=== PATIENT | female | born 2000 | race Caucasian/White ===

== ENCOUNTER 2020-10-16 12:50 | Emergency (ER) | payer BC ==
[~2020-10-16] VITALS: Ht 165.1 cm; Wt 57.0 kg
[2020-10-16] MEDS ORDERED: IPRATROPIUM BROMIDE (0.02%) 0.5MG/2.5ML NEB HHN STA (13:23)
[2020-10-16] MEDS ORDERED: ALBUTEROL (0.083%) 2.5MG/3ML NEB HHN SCH (13:30)
[2020-10-16] MEDS ORDERED: PREDNISONE 20MG TABLET PO ONE (15:00)
[2020-10-16 15:08] VITALS: BP 129/84
[2020-10-16 16:42] LABS: COLOR URINE YELLOW (YELLOW); KETONES URINE NEGATIVE (NEGATIVE); LEUKOCYTE ESTERASE URINE 3+ (NEGATIVE); NITRITE URINE NEGATIVE (NEGATIVE); OCCULT BLOOD URINE 2+ (NEGATIVE); PROTEIN URINE 1+ (NEGATIVE); SPECIFIC GRAVITY URINE 1.024 (1.005-1.030); UROBILINOGEN URINE 0.2 E.U./dL (0.2-1.0)
[2020-10-16 16:44] LABS: CLARITY URINE CLOUDY (CLEAR)
[2020-10-16] MEDS ORDERED: ALBU6.7H9 INH (17:18)
[2020-10-16] MEDS ORDERED: P20 MT (17:18)
[2020-10-16] MEDS ORDERED: CEPH500T MT (17:18)
== END 2020-10-16 17:58 | disposition home or self-care (01) ==
LOC: ER 13:07
DX: R06.02 Shortness of breath (principal); R05 Cough; J45.909 Unspecified asthma, uncomplicated
CPT/HCPCS: 71045; 81003; 81025; 87077; 87086; 87186; 94640; 99284; J7512; Z7610